=== PATIENT | female | born 1985 | race American Indian/Alaskan Native ===

== ENCOUNTER 2016-12-31 22:51 | Emergency (ER) | payer MEDICAID, OTHER ==
[2016-12-31 23:02] VITALS: BP 136/88
--- NOTE | 2016-12-31 23:32 | EDM.PDOC ---
ED HPI GENERAL MEDICAL PROBLEM - General Chief Complaint: Genitourinary Problem Stated Complaint: POSSIBLE UTI Time Seen by Provider: 12/31/16 23:02 Source of Information: Reports: Patient, RN Notes Reviewed History Limitations: Reports: No Limitations - History of Present Illness INITIAL COMMENTS - FREE TEXT/NARRATIVE: The patient states that she developed urinary urgency and frequency this afternoon, then developed gross hematuria around 21:00 tonight. She denies dysuria. She has had nausea, but no emesis. No recent fever. She denies low back pain, but does report slight suprapubic pain or pressure. The patient has not attempted to take any noxk-sas-uenniro or home remedies. No prior similar symptoms, and the patient states that she has never had a UTI previously. The patient is sexually active. The patient does not have a PCP. - Related Data Allergies Allergy/AdvReac Type Severity Reaction Status Date / Time No Known Allergies Allergy Verified 12/31/16 23:03 Home Meds: Home Meds Sulfamethoxazole/Trimethoprim [Bactrim Ds Tablet] 1 tab PO Q12H #9 tablet [Rx] Past Medical History Respiratory History: Reports: Asthma - Past Surgical History HEENT Surgical History: Reports: Oral Surgery ([place] teeth extraction) Social & Family History - Tobacco Use Smoking Status *Q: Never Smoker - Alcohol Use Alcohol Use History: Yes Alcohol Use Frequency: Socially - Recreational Drug Use Recreational Drug Use: No - Living Situation & Occupation Living situation: Reports: , with Significant Other (Fiance) Occupation: Unemployed ED ROS GENERAL - Review of Systems Review Of Systems: See Below Constitutional: Reports: No Symptoms HEENT: Reports: No Symptoms Respiratory: Reports: No Symptoms Cardiovascular: Reports: No Symptoms Endocrine: Reports: No Symptoms GI/Abdominal: Reports: No Symptoms : Reports: No Symptoms Musculoskeletal: Reports: No Symptoms Skin: Reports: No Symptoms Neurological: Reports: No Symptoms Psychiatric: Reports: No Symptoms Hematologic/Lymphatic: Reports: No Symptoms Immunologic: Reports: No Symptoms ED EXAM, RENAL/ - Physical Exam Exam: See Below Exam Limited By: No Limitations General Appearance: Alert, WD/WN, No Apparent Distress Eye Exam: Bilateral Eye: Normal Inspection Ears: Normal External Exam, Hearing Grossly Normal Nose: Normal Inspection, No Blood Throat/Mouth: Normal Inspection, Normal Lips, Normal Voice, No Airway Compromise Head: Atraumatic, Normocephalic Neck: Normal Inspection, Full Range of Motion Respiratory/Chest: No Respiratory Distress, Lungs Clear, Normal Breath Sounds, No Accessory Muscle Use Cardiovascular: Normal Peripheral Pulses, Regular Rate, Rhythm, No Gallop, No JVD, No Murmur, No Rub GI/Abdominal: Normal Bowel Sounds, Soft, No Organomegaly, No Distention, No Abnormal Bruit, No Mass, Tender (Mild, suprapubic. Nontender elsewhere.) (Female) Exam: Deferred Rectal (Female) Exam: Deferred Back Exam: Normal Inspection, Full Range of Motion. No: CVA Tenderness (L), CVA Tenderness (R) Extremities: Normal Inspection, Normal Range of Motion, No Pedal Edema, Normal Capillary Refill Neurological: Alert, Oriented, Normal Cognition, No Motor/Sensory Deficits Psychiatric: Normal Affect Skin Exam: Warm, Dry, Intact, Normal Color, No Rash Course - Vital Signs Last Recorded V/S: Last Vital Signs Temp 36.7 C 12/31/16 23:01 Pulse 94 12/31/16 23:01 Resp 16 12/31/16 23:01 BP 136/88 12/31/16 23:01 Pulse Ox 98 12/31/16 23:01 - Orders/Labs/Meds Orders: Active Orders 24 hr Category Date Time Status CULTURE URINE [RM] Stat Lab 01/01/17 00:22 Received Labs: Laboratory Tests 12/31/16 12/31/16 Range/Units 23:20 23:20 Urine Color Yellow (Yellow) Urine Appearance Clear (Clear) Urine pH 6.5 (5.0-8.0) Ur Specific [place] 1.020 (1.005-1.030) Urine Protein 2+ H (Negative) Urine Glucose (UA) Negative (Negative) Urine Ketones Negative (Negative) Urine Occult Blood 3+ H (Negative) Urine Nitrite Negative (Negative) Urine Bilirubin Negative (Negative) Urine Urobilinogen 0.2 (0.2-1.0) Ur Leukocyte Esterase 1+ H (Negative) Urine RBC 20-30 H (0-5) /hpf Urine WBC 10-20 H (0-5) /hpf Ur Epithelial Cells 10-20 H (0-5) /hpf Urine Bacteria Moderate H (FEW) /hpf Urine Mucus Not seen (FEW) /hpf Urine HCG, Qual Negative (NEGATIVE) Meds: Medications Discontinued Medications Generic Name Dose Route Start Last Admin Trade Name Mathew PRN Reason Stop Dose Admin Trimethoprim/Sulfamethoxazole 1 tab 01/01/17 00:34 Septra Ds PO 01/01/17 00:35 ONETIME ONE - Re-Assessments/Exams Free Text/Narrative Re-Assessment/Exam: 01/01/17 00:21 The patient's urinalysis demonstrates considerable blood and 10-20 WBCs, but also 10-20 epithelial cells and moderate bacteria. Unfortunately, it is unclear if the patient has a UTI or if the urinalysis abnormalities are due to contamination. I have ordered a urine culture, and will initiate antimicrobial therapy through 01/05/2017, once the urine results have returned. 01/01/17 00:34 The patient's urine test is negative. I will start her on oral Bactrim. Departure - Departure Time of Disposition: 00:55 Disposition: Home, Self-Care 01 Condition: Good Clinical Impression: UTI (urinary tract infection) - Discharge Information Referrals: PCP,Lencho [Primary Care Provider] - Sal Amaro [Physician] - Forms: ED Department Discharge Additional Instructions: You were seen in the emergency room for urinary frequency and urgency, along with visible blood in your urine. Workup in the ER included a urinalysis, a urine test, and a sample of your urine has been sent for culture. Unfortunately, your urinalysis was contaminated, therefore we are not able to determine if you have a urinary tract infection, however, clinically, we suspect that you do. You have been started on the antibiotic Bactrim. Take one tablet every 12 hours , as prescribed. You may also take [id number] Azo, for total of 6 doses - either 3 doses a day for 2 days, or 2 doses a day for 3 days. Azo will help with your symptoms. Azo will turn your urine orange - this is normal. Stay adequately hydrated. Follow-up with Dr. Amaro in the clinic this coming 01/05/2017, to check on your urine culture results, to make sure that you are on the right antibiotic. If any other problems, please do not hesitate to return to the ER. - My Orders Last 24 Hours: My Active Orders 01/01/17 00:22 CULTURE URINE [RM] Stat - Assessment/Plan Last 24 Hours: My Active Orders 01/01/17 00:22 CULTURE URINE [RM] Stat
[2017-01-01] MEDS ORDERED: Sulfamethoxazole/Trimethoprim 800-160 MG Tab PO ONE (00:34)
== END 2017-01-01 01:07 | disposition home or self-care (01) ==
LOC: JD.ED 22:51
DX: N39.0 Urinary tract infection, site not specified (principal); J45.909 Unspecified asthma, uncomplicated
CPT/HCPCS: 81001; 81025; 87086; 87088; 87186; 99283; A9270

== ENCOUNTER 2017-01-25 22:34 | Emergency (ER) | payer MEDICAID, OTHER ==
[2017-01-25 22:46] VITALS: BP 131/78
[2017-01-25] MEDS ORDERED: Sodium Chloride 0.9% 10 ML Syringe FLUSH PRN (22:47)
[2017-01-25] MEDS ORDERED: Ketorolac 30 MG/ML SDV IVPUSH ONE (22:50)
[2017-01-25] MEDS ORDERED: Sodium Chloride 0.9% 1,000 ML IV SCH (23:00)
--- NOTE | 2017-01-25 23:30 | EDM.PDOCBH ---
ED HPI GENERAL MEDICAL PROBLEM - General Chief Complaint: Drug or Alcohol Abuse Stated Complaint: POSS OVERDOSE Time Seen by Provider: 01/25/17 22:39 Source of Information: Reports: Patient History Limitations: Reports: No Limitations - History of Present Illness INITIAL COMMENTS - FREE TEXT/NARRATIVE: The patient presents with an accidental overdose. She has chronic neck pain from an accident 4 years ago. She will get flair ups of her neck pain that radiates to her head and she will get a headache. That happened tonight and she took 4 of her 10mg baclofen and 2 tylenol. She was very sleepy and passed out a couple times. She also vomited once on the way to the hospital. Her headache was better but it coming back. She did not ingest anything else such as alcohol or street drugs. She took this about 8pm tonight. Onset: Sudden Duration: Hour(s): (8pm tonight) Location: Reports: Head Quality: Reports: Ache Severity: Moderate Improves with: Reports: None Worsens with: Reports: None Associated Symptoms: Reports: Nausea/Vomiting. Denies: No Other Symptoms, Cough , Shortness of Breath Neck Pain Score (Numeric/FACES): 6 - Related Data Allergies Allergy/AdvReac Type Severity Reaction Status Date / Time No Known Allergies Allergy Verified 12/31/16 23:03 Home Meds: Home Meds Albuterol [Proventil HFA] 2 puff INH ASDIRECTED 01/25/17 [History] Baclofen 10 mg PO ASDIRECTED 01/25/17 [History] Past Medical History - Past Health History Medical/Surgical History: Denies Medical/Surgical History Respiratory History: Reports: Asthma - Past Surgical History HEENT Surgical History: Reports: Oral Surgery Social & Family History - Tobacco Use Smoking Status *Q: Never Smoker - Caffeine Use Caffeine Use: Reports: Energy Drinks - Recreational Drug Use Recreational Drug Use: No - Living Situation & Occupation Living situation: Reports: , with Significant Other (Fiance) Occupation: Unemployed ED ROS GENERAL - Review of Systems Review Of Systems: See Below Constitutional: Reports: No Symptoms HEENT: Reports: No Symptoms Respiratory: Reports: No Symptoms Cardiovascular: Reports: No Symptoms Endocrine: Reports: No Symptoms GI/Abdominal: Reports: Nausea, Vomiting : Reports: No Symptoms Musculoskeletal: Reports: No Symptoms Skin: Reports: No Symptoms Neurological: Reports: Headache ED EXAM, BEHAVIORAL HEALTH - Physical Exam Exam: See Below Exam Limited By: No Limitations General Appearance: Alert, No Apparent Distress Ears: Normal External Exam Nose: Normal Inspection Head: Atraumatic, Normocephalic Neck: Other (Pain upon palpation to the lower cervical spine) Respiratory/Chest: No Respiratory Distress, Lungs Clear, Normal Breath Sounds Cardiovascular: Regular Rate, Rhythm, No Edema, No Murmur GI/Abdominal: Soft, Non-Tender, No Organomegaly, No Mass Back Exam: Normal Inspection EKG INTERPRETATION EKG Date: 01/25/17 Time: 10:43 Rhythm: NSR Rate (Beats/Min): 82 [place]: Normal P-Wave: Present QRS: Normal ST-T: Normal QT: Normal COURSE, BEHAVIORAL HEALTH COMP - Course Vital Signs: Last Vital Signs Temp 97.7 F 01/25/17 22:44 Pulse 82 01/25/17 22:44 Resp 21 H 01/25/17 22:44 BP 131/78 01/25/17 22:44 Pulse Ox 100 01/25/17 22:44 Orders, Labs, Meds: Active Orders 24 hr Category Date Time Status Cardiac Monitoring [RC] . DIRECTED Care 01/25/17 22:48 Active Peripheral IV Care [RC] . DIRECTED Care 01/25/17 22:49 Active Sodium Chloride 0.9% [Normal Saline] 1,000 ml Med 01/25/17 23:00 Active IV ASDIRECTED Sodium Chloride 0.9% [Saline Flush] Med 01/25/17 22:47 Active 10 ml FLUSH ASDIRECTED PRN Peripheral IV Insertion Adult [OM.PC] Stat Oth 01/25/17 22:47 Ordered Medication Orders Sodium Chloride (Normal Saline) 1,000 mls @ 125 mls/hr IV ASDIRECTED GAUDENCIO Last Admin: 01/25/17 22:55 Dose: 125 mls/hr Sodium Chloride (Saline Flush) 10 ml FLUSH ASDIRECTED PRN PRN Reason: Keep Vein Open Last Admin: 01/25/17 22:56 Dose: 10 ml Laboratory Tests 01/25/17 01/25/17 01/25/17 Range/Units 22:50 22:50 22:50 WBC 9.80 (3.98-10.04) K/mm3 RBC 5.16 (3.98-5.22) M/mm3 Hgb 15.3 (11.2-15.7) gm/L Hct 44.1 (34.1-44.9) % MCV 85.5 (79.4-94.8) fl MCH 29.7 (25.6-32.2) pg MCHC 34.7 (32.2-35.5) g/dl RDW Std Deviation 37.7 (36.4-46.3) fL Plt Count 266 (182-369) K/mm3 MPV 9.0 L (9.4-12.3) fl Neut % (Auto) 61.8 (34.0-71.1) % Lymph % (Auto) 25.0 (19.3-51.7) % [place] % (Auto) 10.7 (4.7-12.5) % Eos % (Auto) 2.0 (0.7-5.8) Baso % (Auto) 0.3 (0.1-1.2) % Neut # (Auto) 6.05 (1.56-6.13) K/mm3 Lymph # (Auto) 2.45 (1.18-3.74) K/mm3 [place] # (Auto) 1.05 H (0.24-0.36) K/mm3 Eos # (Auto) 0.20 (0.04-0.36) K/mm3 Baso # (Auto) 0.03 (0.01-0.08) K/mm3 Sodium 141 (136-145) mEq/L Potassium 3.6 (3.5-5.1) mEq/L Chloride 105 (98-107) mEq/L Carbon Dioxide 26 (21-32) mEq/L Anion Gap 13.6 (5-15) BUN 13 (7-18) mg/dL Creatinine 0.7 (0.55-1.02) mg/dL Est Cr Clr Drug Dosing 92.10 mL/min Estimated GFR (MDRD) > 60 (>60) mL/min BUN/Creatinine Ratio 18.6 H (14-18) Glucose 162 H (74-106) mg/dL Calcium 9.0 (8.5-10.1) mg/dL Total Bilirubin 0.7 (0.2-1.0) mg/dL AST 12 L (15-37) U/L ALT 24 (14-59) U/L Alkaline Phosphatase 71 (46-116) U/L Total Protein 7.6 (6.4-8.2) g/dl Albumin 4.0 (3.4-5.0) g/dl Globulin 3.6 gm/dL Albumin/Globulin Ratio 1.1 (1-2) HCG, Qual Negative (NEGATIVE) Ethyl Alcohol 0.00 (0.00) gm% Medications Generic Name Dose Route Start Last Admin Trade Name Freq PRN Reason Stop Dose Admin Sodium Chloride 1,000 mls @ 125 mls/hr 01/25/17 23:00 01/25/17 22:55 Normal Saline IV 125 mls/hr ASDIRECTED GAUDENCIO Administration Sodium Chloride 10 ml 01/25/17 22:47 01/25/17 22:56 Saline Flush FLUSH 10 ml ASDIRECTED PRN Administration Keep Vein Open Discontinued Medications Generic Name Dose Route Start Last Admin Trade Name Freq PRN Reason Stop Dose Admin Ketorolac Tromethamine 30 mg 01/25/17 22:50 01/25/17 22:55 Toradol IVPUSH 01/25/17 22:51 30 mg ONETIME ONE Administration Re-Assessment/Re-Exam: I ordered an IV NS at 125mL/hr, EKG, and labs. Her EKG shows NSR with no acute changes. Her CBC and CMP looks good. Her HCG is negative. Her ETOH is negative. I called the poison center and they said peak affect is 2 to 3 hours and she would be safe to be discharged. She feels better. I will discharge her home. Departure - Departure Time of Disposition: 00:20 Disposition: Home, Self-Care 01 Condition: Good Clinical Impression: Accidental overdose Qualifiers: Encounter type: initial encounter Qualified Code(s): T50.901A - Poisoning by unspecified drugs, medicaments and biological substances, accidental ( unintentional), initial encounter - Discharge Information Referrals: PCP,None [Primary Care Provider] - Additional Instructions: Take your medication as prescribed. Follow up with Dr Valdez a neurosurgeon at [facility] in [place]. His number is . Please return if you are worse. - My Orders Last 24 Hours: My Active Orders 01/25/17 22:47 Sodium Chloride 0.9% [Saline Flush] 10 ml FLUSH ASDIRECTED PRN Peripheral IV Insertion Adult [OM.PC] Stat 01/25/17 22:48 Cardiac Monitoring [RC] . DIRECTED 01/25/17 22:49 Peripheral IV Care [RC] . DIRECTED 01/25/17 23:00 Sodium Chloride 0.9% [Normal Saline] 1,000 ml IV ASDIRECTED - Assessment/Plan Last 24 Hours: My Active Orders 01/25/17 22:47 Sodium Chloride 0.9% [Saline Flush] 10 ml FLUSH ASDIRECTED PRN Peripheral IV Insertion Adult [OM.PC] Stat 01/25/17 22:48 Cardiac Monitoring [RC] . DIRECTED 01/25/17 22:49 Peripheral IV Care [RC] . DIRECTED 01/25/17 23:00 Sodium Chloride 0.9% [Normal Saline] 1,000 ml IV ASDIRECTED
== END 2017-01-26 00:31 | disposition home or self-care (01) ==
LOC: JD.ED 22:34
DX: T42.8X1A Poisoning by antiparkinsonism drugs and other central muscle-tone depressants, accidental (unintentional), initial encounter (principal); T39.1X1A Poisoning by 4-Aminophenol derivatives, accidental (unintentional), initial encounter; R11.2 Nausea with vomiting, unspecified; J45.909 Unspecified asthma, uncomplicated
CPT/HCPCS: 36415; 80053; 84703; 85025; 96361; 96374; 99284; G0480; J1885; J7040; J7050; 93010